=== PATIENT | female | born 1960 | race Caucasian/White ===

== ENCOUNTER 2021-03-03 09:36 | Emergency (ER) | payer OTHER, SELFPAY ==
[2021-03-03 10:03] VITALS: BP 160/89; PULSE 64; RESP 18; TEMP 36.8; O2SAT 100; BMI 25.7
--- NOTE | 2021-03-03 10:08 | ED.ALLEREA ---
HPI - Allergic Reaction General Chief complaint: Allergic Reaction Stated complaint: Allergic reaction to new medication Time Seen by Provider: 03/03/21 10:03 Source: patient Mode of arrival: Family Vehicle Limitations: no limitations History of Present Illness HPI narrative: Patient is a 60-year-old female. This morning took the 1st dose of a new medicine for irritable bowel syndrome. This medicine was dicyclomine. She has never taken it before. Approximately 30 minutes after ingesting the medicine she started to have a dry mouth, tingling skin, lightheadedness. Denies any nausea vomiting. No chest pain. No problems breathing. No swelling of the tongue. No problems swallowing. No rashes. Has not tried anything for the symptoms prior to arrival. Related Data Home Medications Medication Instructions Recorded Confirmed dicyclomine 20 mg tablet 20 mg PO DAILY 03/03/21 03/03/21 Allergies Allergy/AdvReac Type Severity Reaction Status Date / Time ibuprofen Allergy Swelling Verified 03/03/21 09:55 of Lip/Tongue/Throat Review of Systems Constitutional Constitutional: Denies fever(s) Cardiovascular Cardiovascular: Denies chest pain and Denies dyspnea Respiratory Respiratory: Denies cough and Denies dyspnea Gastrointestinal Gastrointestinal: Denies abdominal pain, Denies nausea and Denies vomiting Musculoskeletal Musculoskeletal: Reports system reviewed and no additional complaints, except as documented and Reports as per HPI Integumentary/Breasts Skin/Breast: Reports system reviewed and no additional complaints, except as documented and Reports as per HPI Neurologic Neurologic: Reports system reviewed and no additional complaints, except as documented and Reports as per HPI Hematologic/Lymphatic On Anticoagulants: No Allergic/Immunologic Allergic/Immunologic: Reports system reviewed and no additional complaints, except as documented and Reports as per HPI Patient History Medical History Irritable bowel syndrome Social History Smoking Status: Never smoker Smoking Status: Never smoker alcohol intake frequency: 0-2 drinks per day Substance Use Type: does not use Exam Initial Vital Signs Initial Vital Signs: Vital Signs Temperature 98.3 F 03/03/21 10:03 Pulse Rate 64 03/03/21 10:03 Respiratory Rate 18 03/03/21 10:03 Blood Pressure 160/89 H 03/03/21 10:03 Pulse Oximetry 100 03/03/21 10:03 Const General: cooperative, healthy appearing and comfortable [facility] Head: normal to inspection and normocephalic Mouth: oral mucosae normal Throat: posterior oropharynx normal Resp Effort & Inspection: normal respiratory effort Auscultation: clear to auscultation bilaterally Cardio Rate: regular rate Rhythm: regular rhythm GI Palpation: soft and No tender Skin General: no rashes or lesions noted Neuro General: patient alert and patient awake Extrem General: normal to inspection and capillary refill normal Psych Appearance: grossly normal and well kempt Course Orders Ordered: Discontinued Medications Diphenhydramine HCl (Diphenhydramine 25 Mg Tablet) 25 mg PO NOW ONE Stop: 03/03/21 10:04 Last Admin: 03/03/21 10:14 Dose: 25 mg Documented by: MARK Vital Signs Vital signs: Vital Signs - 8 hr 03/03/21 10:03 Temperature 98.3 F Pulse Rate 64 Respiratory Rate 18 Blood Pressure 160/89 H Pulse Oximetry 100 MDM - Allergic Reaction MDM Narrative Medical decision making narrative: I suspect that the reaction that she had today after the ingestion of dicyclomine was a anticholinergic reaction rather than a allergic reaction. She did feel better after they Benadryl. No respiratory distress. No nausea vomiting. Patient is safe for discharge home. She will stop taking this medication. She was given return precautions and follow-up instructions. She expressed understanding and agreement. Discharge Plan Departure Patient Disposition: Home Clinical Impression: Medication reaction Instructions: DI for Adverse Drug Reaction -- Allergic Activity Restrictions/Additional Instructions: I do recommend that you stop taking the dicyclomine has you obviously have had a bad reaction to it. This medicine has a duration of up to 4 hours with a peak of 60-90 minutes after ingestion. Contact your primary doctor to discuss potential alternatives to this medicine. Return to the emergency department for any new or worsening symptoms Prescriptions: No Action dicyclomine 20 mg tablet 20 mg PO DAILY RF: 0
[2021-03-03] MEDS: diphenhydrAMINE 25 MG TABLET PO (10:14)
[2021-03-03 10:35] VITALS: PULSE 57; O2SAT 96
[2021-03-03 11:21] VITALS: BP 152/82; PULSE 56; RESP 18; O2SAT 96
== END 2021-03-03 11:23 | disposition home or self-care (01) ==
PROVIDERS: Emergency Provider Emergency Medicine
DX: R20.2 Paresthesia of skin (principal); R68.2 Dry mouth, unspecified; T44.3X5A Adverse effect of other parasympatholytics [anticholinergics and antimuscarinics] and spasmolytics, initial encounter
CPT/HCPCS: 99283

== ENCOUNTER 2021-05-25 10:37 | Observation (INO) | payer OTHER, SELFPAY ==
[2021-05-25] VITALS (14 sets, daily range): BP systolic 135–197; BP diastolic 77–94; PULSE 63–78; RESP 14–21; TEMP 36.5–36.9; O2SAT 81–98; BMI 28.5
--- NOTE | 2021-05-25 10:47 | DI.CT.S_ITS ---
PROCEDURE: CT STROKE INDICATIONS: acute stroke symptoms onset 930am TECHNIQUE: Noncontrast 4.5 mm thick angled axial sections acquired from the foramen magnum to the vertex, with coronal reformats. For radiation dose reduction, the following was used: automated exposure control, adjustment of mA and/or kV according to patient size. COMPARISON: None. FINDINGS: Image quality: Excellent. CSF spaces: Basal cisterns are patent. No extra-axial fluid collections. Ventricles are normal in size and shape. Brain: No midline shift. No intracranial masses or hemorrhage. Alfaro-white matter interface is normal. Skull and face: Calvarium and visualized facial bones are intact, without suspicious lesions. Sinuses: Visualized sinuses and mastoids are clear. IMPRESSION: No acute intracranial abnormality identified. No acute intracranial hemorrhage. This study fulfills neurological imaging criteria for inclusion or exclusion of acute stroke therapies based on available published neurological imaging guidelines. Comment: Findings were discussed with Joan Limon at the time of dictation. Dictated by: Kyaw Matute M.D. on 05/25/2021 at 11:12 Approved by: Kyaw Matute M.D. on 05/25/2021 at 11:15
--- NOTE | 2021-05-25 10:49 | ED_ITS ---
HPI - General Adult General Chief complaint: Neuro Symptoms/Deficit Stated complaint: Poss stroke Time Seen by Provider: 05/25/21 10:46 History of Present Illness HPI narrative: 60-year-old woman with no cardiac, stroke or hypertensive history presents with acute onset of right-sided facial numbness minor weakness right arm with decreased sensation and complaints that her tongue does not seem to be working right. She was on her way to work at 9:30 a.m. this morning when symptoms sta rted. She did take an aspirin prior to arrival. Code stroke was called at time of arrival. Pt denies htn, other med but chart indicates HTN, clonidine at HS for sleep, hormones and recent Hematuria persisting after treatment of urinary tract infection and discussion of CT KUB verses renal ultrasound was had. Related Data Home Medications Medication Instructions Recorded Confirmed clonidine HCl 0.1 mg tablet 0.1 mg PO BEDTIME 05/25/21 05/25/21 dicyclomine 20 mg tablet 20 mg PO DAILY 05/25/21 05/25/21 estradiol 1 mg tablet 1 mg PO DAILY 05/25/21 05/25/21 hydroxyzine pamoate 25 mg capsule 25 mg PO BEDTIME 05/25/21 05/25/21 metoprolol succinate 25 mg 25 mg PO DAILY 05/25/21 05/25/21 tablet,extended release 24 hr Allergies Allergy/AdvReac Type Severity Reaction Status Date / Time ibuprofen Allergy Swelling Verified 03/03/21 09:55 of Lip/Tongue/Throat Review of Systems Review of Systems Narrative: She notes recurrent UTI symptoms and is scheduled for a abdominal CT scan as part of that workup Pertinent positive and negative findings as per HPI Remainder of review of systems is otherwise unremarkable for Constitutional: Fevers, chills, weakness ENT: No sore throat, neck pain, ear pain CV: Chest pain, palpitations, Respiratory: Cough, wheeze, dyspnea GI: Nausea, vomiting, diarrhea, Patient History Medical History Irritable bowel syndrome Social History household members: spouse Smoking Status: Never smoker Smoking Status: Never smoker alcohol intake frequency: 0-2 drinks per day Substance Use Type: does not use Exam Narrative Exam Narrative: General: Healthy appearing, in no acute distress. Able to give a complete and coherent history. Well-nourished well-developed HEENT: Moist mucous membranes, normal sclera with reactive pupils, Neck: No JVD, supple Respiratory: Lungs are clear to auscultation, no wheezing no rales no rhonchi. Full and symmetrical air movement Cardiac: Regular rate and rhythm no murmurs no bruits Abdomen: Soft, nontender, good bowel tones, no flank pain Skin: Warm and dry, no rashes Extremities: No trauma, well perfused Psych: Cooperative, appropriate insight and affect Neurologic: NIH Stroke Scale/Score (NIHSS) from [email or web address] on 05/25/2021 3 points NIH Stroke Scale INPUTS: 1A: Level of consciousness ?> 0 = Alert; keenly responsive 1B: Ask month and age ?> 0 = Both questions right 1C: 'Blink eyes' & 'squeeze hands' ?> 0 = Performs both tasks 2: Horizontal extraocular movements ?> 0 = Normal 3: Visual kumar ?> 0 = No visual loss 4: Facial palsy ?> 1 = Minor paralysis (flat nasolabial fold, smile asymmetry) 5A: Left arm motor drift ?> 0 = No drift for 10 seconds 5B: Right arm motor drift ?> 0 = No drift for 10 seconds 6A: Left leg motor drift ?> 0 = No drift for 5 seconds 6B: Right leg motor drift ?> 0 = No drift for 5 seconds 7: Limb Ataxia ?> 0 = No ataxia 8: Sensation ?> 1 = Mild-moderate loss: less sharp/more dull 9: Language/aphasia ?> 0 = Normal; no aphasia 10: Dysarthria ?> 1 = Mild-moderate dysarthria: slurring but can be understood 11: Extinction/inattention ?> 0 = No abnormality Initial Vital Signs Initial Vital Signs: Vital Signs Blood Pressure 185/88 H 05/25/21 10:51 Course Orders Ordered: Acetaminophen (Acetaminophen 325 Mg Tablet) 650 mg PO Q6HR PRN PRN Reason: Fever/Mild Pain (1-3) Last Admin: 05/25/21 18:04 Dose: 650 mg Documented by: MEENU Aspirin (Aspirin Ec 325 Mg Tablet) 325 mg PO DAILY [facility] Atorvastatin Calcium (Atorvastatin 20 Mg Tablet) 10 mg PO BEDTIME CARLOS Last Admin: 05/25/21 21:05 Dose: 10 mg Documented by: ANGEL Clonidine HCl (Clonidine 0.1 Mg Tablet) 0.1 mg PO QPM [facility] Enoxaparin Sodium (Enoxaparin 40 Mg/0.4 Ml Syringe) 40 mg SUBCUT DAILY [facility] Hydroxyzine Pamoate (Hydroxyzine Pamoate 25 Mg Capsule) 25 mg PO BEDTIME [facility] Last Admin: 05/25/21 22:54 Dose: 25 mg Documented by: ANGEL Sodium Chloride (Normal Saline 0.9%) 1,000 mls @ 150 mls/hr IV CONT [facility] Last Infusion: 05/25/21 15:41 Dose: 0 mls/hr Documented by: Admin: 05/25/21 11:45 Dose: 150 mls/hr Documented by: JINNY Lorazepam (Lorazepam 0.5 Mg Tablet) 0.5 mg PO Q6HR PRN PRN Reason: Anxiety Last Admin: 05/25/21 23:53 Dose: 0.5 mg Documented by: ANGEL Metoprolol Succinate (Metoprolol Er 25 Mg Tablet) 25 mg PO DAILY [facility] Naloxone HCl (Naloxone 0.4 Mg/Ml Vial) 0.2 mg IV Q2MIN PRN PRN Reason: Opiate Reversal Ondansetron HCl (Ondansetron 4 Mg Odt) 4 mg PO Q8HR PRN PRN Reason: Nausea And Vomiting Discontinued Medications Labetalol HCl (Labetalol 20 Mg/4 Ml Syringe) 10 mg IV NOW ONE Stop: 05/25/21 14:34 Last Admin: 05/25/21 15:02 Dose: 10 mg Documented by: BALDEMAR Metoprolol Tartrate (Metoprolol Ir 25 Mg Tablet) 25 mg PO NOW ONE Stop: 05/25/21 14:34 Last Admin: 05/25/21 15:02 Dose: 25 mg Documented by: BALDEMAR Vital Signs Vital signs: Vital Signs - 8 hr 05/25/21 10:51 05/25/21 11:36 05/25/21 12:00 Pulse Rate 63 69 Respiratory Rate 15 Blood Pressure 185/88 H Pulse Oximetry 81 L 96 05/25/21 12:23 05/25/21 12:30 05/25/21 13:00 Pulse Rate 71 69 69 Respiratory Rate 14 18 15 Blood Pressure 197/94 H Pulse Oximetry 98 97 97 Medical Decision Making Lab Data Result diagrams: 05/26/21 06:00 05/26/21 06:00 Labs: Lab Results 05/25/21 05/25/21 05/25/21 Range/Units 11:20 11:20 12:19 WBC 4.1 L (4.5-11.0) X10^3/uL RBC 3.58 L (4.0-5.2) X10^6/uL Hgb 12.1 (12.0-16.0) g/dL Hct 34.9 L (36-46) % MCV 97.4 (80-100) fL MCH 33.8 (26-34) PG MCHC 34.6 (30-36) % RDW 12.5 (11.6-14.8) % Plt Count 156 (150-400) X10^3/uL Neut % (Auto) 46.2 L (50-75) % Lymph % (Auto) 40.0 (25-40) % Levy % (Auto) 11.1 (3-14) % Eos % (Auto) 1.9 L (2-4) % Baso % (Auto) 0.8 (0-2) % Neut # (Auto) 1900 (0365-5352) /uL Lymph # (Auto) 1600 (4747-2588) /uL Levy # (Auto) 500 (0-900) /uL Eos # (Auto) 100 (0-450) /uL Baso # (Auto) 0 (0-100) /uL Sodium 134 L (137-145) mmol/L Potassium 3.7 (3.4-5.1) mmol/L Chloride 100 (98-107) mmol/L Carbon Dioxide 27 (22-32) mmol/L BUN 15 (7-17) mg/dL Creatinine 0.86 (0.52-1.04) mg/dL Estimated GFR > 60.0 (>60) mL/min BUN/Creatinine Ratio 17.4 (6-22) Glucose 115 H (70-100) mg/dL Calcium 9.0 (8.4-10.2) mg/dL Total Bilirubin 0.4 (0.2-1.3) mg/dL AST 39 H (14-36) IU/L ALT 33 (<35) IU/L Alkaline Phosphatase 58 (38-126) U/L Total Protein 7.2 (6.3-8.2) g/dL Albumin 4.3 (3.5-5.0) g/dL Globulin 2.9 (1.7-4.1) g/dL Albumin/Globulin Ratio 1.5 (1.0-2.8) SARS-CoV-2 (PCR) Negative (Negative) Point of Care Testing Glucose POC 145 Point of care testing: Point of Care Testing Glucose POC [address] head and CTA head and neck: Radiologist's Impression: FINDINGS:? Image quality:? Excellent.? ? CSF spaces:? Basal cisterns are patent.? No extra-axial fluid collections.? Ventricles are normal in size and shape.? ? Brain:? No midline shift.? No intracranial masses or hemorrhage.? Alfaro-white matter interface is normal.? ? Skull and face:? Calvarium and visualized facial bones are intact, without s uspicious lesions.? ? Sinuses:? Visualized sinuses and mastoids are clear.? ? IMPRESSION:? No acute intracranial abnormality identified.? No acute intracranial hemorrhage. ? This study fulfills neurological imaging criteria for inclusion or exclusion of acute stroke therapies based on available published neurological imaging guidelines.? ? ? Comment: Findings were discussed with Joan Limon at the time of dictation. ? Dictated by: Kyaw Matute M.D. on 05/25/2021 at 11:12 ? ? FINDINGS:? Image quality:? Excellent.? ? BRAIN:? CSF spaces:? Ventricles are normal in size and shape.? Basal cisterns are patent.? No extra-axial fluid collections.? ? Brain:? No midline shift.? No intracranial bleeds or masses.? Alfaro-white matter interface appears intact.? ? Skull and face:? Calvarium and facial bones appear intact, without suspicious lesions.? Orbits appear normal.? ? Sinuses:? Sinuses and mastoids are clear.? ? HEAD CT ANGIOGRAPHY:? Anterior circulation:? Intracranial internal carotid arteries are normal in size and flow.? The flow within the paired anterior cerebral arteries is normal and symmetric.? The flow within the middle cerebral arteries is normal and symmetric.? The anterior communicating artery is seen.? No aneurysms are seen.? ? Posterior circulation:? Visualized portions of the vertebral arteries demonstrate normal caliber, and join to form a normal appearing basilar artery.? Flow within the posterior cerebral arteries is normal and symmetric.? No aneurysms are seen.? ? NECK CT ANGIOGRAPHY:? Carotid system:? The great vessels demonstrate a conventional anatomy as they arise from the aortic arch.? The origins of the common carotid arteries appear patent.? The common carotid arteries demonstrate normal caliber and courses.? The bifurcation regions are both widely patent.? The internal carotid arteries demonstrate normal calibers and courses.? ? Posterior circulation:? The origins of the vertebral arteries both appear widely patent.? The more superior extracranial portions of both vertebral arteries also demonstrate normal courses and calibers.? They join to form a normal appearing basilar artery.? ? Soft tissues:? Visualized neck soft tissues demonstrate no suspicious abnormalities.? ? Bones:? No suspicious bony lesions.? Visualized cervical spine appears normally aligned.? Cervical spine degenerative changes are seen, with focal moderate disc space na rrowing at C4-C5, with milder degenerative changes seen elsewhere. ? ? IMPRESSION:? No hemodynamically significant stenosis can be seen within the intracranial circulation or within the arteries of neck. ? If there is strong clinical suspicion for an acute stroke, please consider a brain MRI for further evaluation, as it is more sensitive (assuming that there is no contraindication to MRI). ? ? Incidental note is made of: Focal C4-C5 degenerative change ? Any quantitative measurements of stenosis were performed using NASCET criteria.? ? ? ECG Data Interpretation: Sinus rhythm at a rate of 72 Normal intervals, normal axis No acute ischemic changes MDM Narrative Medical decision making narrative: 11:08 CT scan is reviewed in real-time no acute bleed. Tele stroke consult is initiated 1114 tell stroke exam is begun. In consultation with tele stroke neurologist decision was made to not give tPA based on minimal symptoms and risk benefit carol lysis. Will talk to her admitting doctor and anticipate hospital admission. All findings are reviewed with patient and her . Care is reviewed with Dr. Salinas, her chart is reviewed and turned that she does have hypertension is on 25 mg of metoprolol succinate with 0.1 mg of clonidine at night for sleeping. She is also on estrogen replacement and recently had hematuria persistent after treatment of a UTI and needs further workup for that. She has remained relatively hypertensive throughout her emergency room stay. Will treat with labetalol and give her oral metoprolol 25 mg tartrate for this afternoon. Dr. Salinas will further evaluate her after her clinic this evening she can be transferred to the floor Additional Information: Acute stroke, NIH score of 3. Patient declined tPA after discussion and exam with tele stroke neurologist based on risk benefit analysis Critical Care Time Critical Care Time Critical Care Time: Yes Total Critical Care Time: 33 Attestation: Critical care time is separate from other billable procedures. There is a high probability of a significant, sudden or life-threatening deterioration that requires my full and direct attention, intervention and personal management. This critical care time includes consultation with family and other consulting doctors, review of records, and interpretation of data from labs, EKGs and imaging as well as managements of acute stroke and emergent consultations Discharge Plan Departure Patient Disposition: Admitted As Inpatient Clinical Impression: Hypertension Stroke Qualifiers: CVA mechanism: thrombosis Precerebral and cerebral artery: unspecified precerebral artery Qualified Code(s): I63.00 - Cerebral infarction due to thrombosis of unspecified precerebral artery Admit Date/Time: 05/25/21 15:04 Admit Provider: Katty Salinas
--- NOTE | 2021-05-25 10:59 | DI.CT.S_ITS ---
PROCEDURE: CT ANGIO HEAD AND NECK INDICATIONS: acute stroke symptoms onset 930am TECHNIQUE: Noncontrast images were performed earlier in the day and not repeated. After the administration of intravenous contrast, 1 mm thick sections acquired from the aortic arch through the [place]. Post-contrast 4.5 mm thick sections then re-acquired from the foramen magnum to the vertex. 3-dimensional hluyjkf-gngwqyqya-ptanjwyber (MIP) and/or volume rendering reformats were acquired of the central intracranial vasculature and neck separately. COMPARISON: [facility], CT, CT STROKE, 05/25/2021, 11:01. FINDINGS: Image quality: Excellent. BRAIN: CSF spaces: Ventricles are normal in size and shape. Basal cisterns are patent. No extra-axial fluid collections. Brain: No midline shift. No intracranial bleeds or masses. Alfaro-white matter interface appears intact. Skull and face: Calvarium and facial bones appear intact, without suspicious lesions. Orbits appear normal. Sinuses: Sinuses and mastoids are clear. HEAD CT ANGIOGRAPHY: Anterior circulation: Intracranial internal carotid arteries are normal in size and flow. The flow within the paired anterior cerebral arteries is normal and symmetric. The flow within the middle cerebral arteries is normal and symmetric. The anterior communicating artery is seen. No aneurysms are seen. Posterior circulation: Visualized portions of the vertebral arteries demonstrate normal caliber, and join to form a normal appearing basilar artery. Flow within the posterior cerebral arteries is normal and symmetric. No aneurysms are seen. NECK CT ANGIOGRAPHY: Carotid system: The great vessels demonstrate a conventional anatomy as they arise from the aortic arch. The origins of the common carotid arteries appear patent. The common carotid arteries demonstrate normal caliber and courses. The bifurcation regions are both widely patent. The internal carotid arteries demonstrate normal calibers and courses. Posterior circulation: The origins of the vertebral arteries both appear widely patent. The more superior extracranial portions of both vertebral arteries also demonstrate normal courses and calibers. They join to form a normal appearing basilar artery. Soft tissues: Visualized neck soft tissues demonstrate no suspicious abnormalities. Bones: No suspicious bony lesions. Visualized cervical spine appears normally aligned. Cervical spine degenerative changes are seen, with focal moderate disc space narrowing at C4-C5, with milder degenerative changes seen elsewhere. IMPRESSION: No hemodynamically significant stenosis can be seen within the intracranial circulation or within the arteries of neck. If there is strong clinical suspicion for an acute stroke, please consider a brain MRI for further evaluation, as it is more sensitive (assuming that there is no contraindication to MRI). Incidental note is made of: Focal C4-C5 degenerative change Any quantitative measurements of stenosis were performed using NASCET criteria. Dictated by: Brad Manjarrez M.D. on 05/25/2021 at 10:25 Approved by: Brad Manjarrez M.D. on 05/25/2021 at 10:28
[2021-05-25 11:33] LABS: Add Manual Diff / Slide Review NO; Basophils Absolute Auto 0 /uL (0-100); Basophils Percent Auto 0.8 % (0-2); Eosinophils Absolute Auto 100 /uL (0-450); Eosinophils Percent Auto 1.9 % (2-4); Hematocrit 34.9 % (36-46); Hemoglobin 12.1 g/dL (12.0-16.0); Lymphocytes Absolute Auto 1600 /uL (1100-4500); Mean Corpuscular HGB Conc 34.6 % (30-36); Mean Corpuscular Hemoglobin 33.8 PG (26-34); Mean Corpuscular Volume 97.4 fL (80-100); Monocytes Absolute Auto 500 /uL (0-900); Monocytes Percent Auto 11.1 % (3-14); Neutrophils Absolute Auto 1900 /uL (1500-7000); Neutrophils Percent Auto 46.2 % (50-75); Platelet Count 156 X10^3/uL (150-400); Red Blood Cell Count 3.58 X10^6/uL (4.0-5.2); Red Cell Distribution Width 12.5 % (11.6-14.8); White Blood Cell Count 4.1 X10^3/uL (4.5-11.0)
--- NOTE | 2021-05-25 11:34 | PC.NURSE ---
Dr. Pinto with [facility] called at 1133. Reports that patient has declined TPA.
[2021-05-25 11:45] LABS: Alanine Aminotransferase 33 IU/L (<35); Albumin 4.3 g/dL (3.5-5.0); Albumin Globulin Ratio 1.5 (1.0-2.8); Alkaline Phosphatase 58 U/L (38-126); Aspartate Aminotransferase 39 IU/L (14-36); BUN Creatinine Ratio 17.4 (6-22); Bilirubin Total 0.4 mg/dL (0.2-1.3); Blood Urea Nitrogen 15 mg/dL (7-17); Carbon Dioxide 27 mmol/L (22-32); Chloride 100 mmol/L (98-107); Estimated Glomerular Filt Rate > 60.0 mL/min (>60); Globulin 2.9 g/dL (1.7-4.1); Glucose 115 mg/dL (70-100); HEMOLYSIS < 15 (0-50); Potassium 3.7 mmol/L (3.4-5.1); Sodium 134 mmol/L (137-145); Total Protein 7.2 g/dL (6.3-8.2)
[2021-05-25] MEDS: SODIUM CHLORIDE 0.9% 1,000 ML 150 ML IV (11:45)
[2021-05-25 13:34] LABS: COVID19 - ADMIT (NP swab/PCR) Negative (Negative)
[2021-05-25] MEDS: LABETALOL 20 MG/4 ML SYRINGE 10 MG IV (15:02)
[2021-05-25] MEDS: METOPROLOL IR 25 MG TABLET PO (15:02)
[2021-05-25] MEDS: ACETAMINOPHEN 325 MG TABLET 650 MG PO (18:04)
--- NOTE | 2021-05-25 18:47 | PC.NURSE ---
admit note: A&Ox4. NIH:0. pt has some blurry vision on Rt eye and head ache on Rt. side of her head. notified provider. VTO for tylenol and low sodium heart healthy diet. no n/v. oriented pt to room. independent. CMS+. call light in reach.
--- NOTE | 2021-05-25 19:10 | DI.ECHO.S_ITS ---
[facility] +---------+ : : [address] : [address] : : : : [id number] : : : : Phone: [phone]+ Echocardiogram Report + + :Name: LEOBARDO CAMERON Study Date: 05/26/2021 Height: 64 in : :[facility] ReadingLocation: Weight: 166 lb : : Gender: Female BSA: 1.8 m2 : :: 1960 Age: 60 yrs BP: 138/84 mmHg: :Reason For Study: CVA : :Ordering Physician: SONNY, : :SHERRIE Performed By: Kaitlynn Dorsey : :Referring: SHERRIE DENNIS : + + Interpretation Summary 1) Normal left ventricular thickness, size, wall motion, and systolic function (EF 60-65%). 2) Normal right ventricular size and function. 3) No significant valvular abnormalities. 4) Injection of contrast documented no interatrial shunt. 5) No prior Echo available for comparison. Procedure: A two-dimensional transthoracic echocardiogram with color flow and Doppler was performed. The study quality was technically adequate. There is no prior echocardiogram noted for this patient. A saline contrast injection was performed to assess for cardiac shunting. The injection was performed through an intravenous line in the left arm. The patient was in sinus rhythm with heart rates between 70-80 bpm during the exam. Left Ventricle: The left ventricle is normal in size and wall thickness. The ejection fraction is estimated to be 60-65%. Diastolic parameters suggest probable normal left ventricular diastolic function and normal filling pressures. Right Ventricle: The right ventricle is normal in size and function. Atria: The left atrial size is normal. Right atrial size is normal. There is no Doppler evidence for an interatrial shunt. Injection of contrast documented no interatrial shunt. Mitral Valve: The mitral valve is normal in structure and function. There is trace mitral regurgitation. Aortic Valve: The aortic valve is trileaflet. The aortic valve opens well. There is no aortic valve stenosis. No aortic regurgitation is present. Tricuspid Valve: The tricuspid valve is normal in structure and function. There is mild tricuspid regurgitation. The right ventricular systolic pressure is estimated to be at least 22 mmHg based on an estimated right atrial pressure of 3 mm Hg. Pulmonic Valve: The pulmonic valve is not well seen, but is grossly normal. There is trace pulmonic regurgitation. Great Vessels: The aortic root is normal size. The dimensions of the ascending aorta are normal. The IVC is of normal diameter and collapses greater than 50% with a sniff. This suggests a low right atrial pressure of 3 mm Hg. Pericardium/ Pleura There is no pericardial effusion. There is no pleural effusion. MMode/2D Measurements & Calculations LVIDd: 3.9 cm LVOT diam: 2.0 cm LVIDs: 2.9 cm Ao root diam: 3.1 cm FS: 26.4 % asc Aorta Diam: 3.0 cm IVSd: 0.92 cm Ao Arch Diam (Prox Trans): 2.7 cm LVPWd: 0.79 cm LV garcia. diameter/BSA (cm/m^2): 2.1 LV sys. diameter/BSA (cm/m^2): 1.6 LA A2 area: 14.2 cm2 RA long axis: 3.8 cm LA A4 area: 14.7 cm2 RA area: 10.3 cm2 LA length (vol): 4.7 cm RA vol: 23.8 ml LA vol: 37.4 ml RA : 13.2 ml/m2 LA vol index: 20.7 ml/m2 IVC diam: 1.0 cm RVD1 (basal): 2.9 cm RVD2 (mid): 2.6 cm TAPSE: 1.7 cm Doppler Measurements & Calculations Ao V2 max: 144.6 cm/sec LVOT Max Logan: 99.4 cm/sec Ao V2 mean: 98.9 cm/sec LV V1 max P.0 mmHg Ao max P.4 mmHg LV V1 VTI: 18.3 cm Ao mean P.3 mmHg LAURA(I,D): 2.2 cm2 Ao V2 VTI: 25.2 cm LAURA(V,D): 2.1 cm2 sev ratio: 0.73 LAURA indexed to BSA (cm^2/m^2): 1.2 MV E max logan: 74.3 cm/sec TR max logan: 220.1 cm/sec MV A max logan: 70.8 cm/sec TR max P.4 mmHg MV E/A: 1.0 PA V2 max: 96.1 cm/sec Med Peak E' Logan: 6.4 cm/sec PA V2 mean: 59.0 cm/sec E/E' med: 11.7 PA mean P.7 mmHg Lat Peak E' Logan: 14.1 cm/sec PA pr(Accel): 36.2 mmHg E/E' lat: 5.3 E/e' average: 8.5 MV dec time: 0.22 sec SV(LVOT): 55.5 ml Reading Physician:01:14 PM
--- NOTE | 2021-05-25 19:11 | P.HP_ITS ---
History of Present Illness History of Present Illness Date Patient Seen: 05/25/21 Time Patient Seen: 19:12 Date of Onset of Symptoms: 05/25/21 Chief complaint: Poss stroke Narrative: This pleasant 60-year-old female who is followed by Jaimee Marie at [facility] presents to emergency department with complaints of possible stroke. Patient is overall very healthy and is treated with metoprolol and clonidine for hypertension as well as estradiol for hormone replacement therapy. She was in her usual state of health today and had a normal morning except was a late start. 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 While she was driving to work she noticed that her right hand and part of her right forearm se emed numb and tingly. The patient had awakened this morning feeling that she had a little bit of a kink on her right side of her neck. She then got to school noticed that she had trouble gripping her water bottle and she looked in the mirror and did this mild test and noticed that her right lateral mouth was drooping. She then took a full aspirin and was transported to the emergency department at [facility]. She had a neuro tele evaluation and recommendations were for thrombolytics because she did arrive well within the time frame and was felt appropriate for this therapeutic intervention. However she declined. Her CT scan of her head and CT angiogram of her neck were unrevealing. Her blood pressure was elevated in the ER in the 180s over 110 and she was given her p.o. metoprolol as well as 1 dose of labetalol. Her symptoms have subsided to this point she notices a slight droop on the right side of her mouth and a slight right frontal headache that is going away with Tylenol and blurry vision in her right eye. She has no further having any weakness in her arms or numbness or tingling in her arm. She is right handed. She never had any right-sided paresthesias. She had no other motor deficits. She felt that her tongue was thick but she did not have any difficulty speaking. She did not have dysphagia or dysarthria. She not have any cognitive difficulties. She is now feeling good in her blood pressure is normotensive. She is interviewed with her at her bedside. She is an excellent historian. Patient was admitted for further monitoring workup. Her past medical history: 1. Hypertension 2. Mild hyperlipidemia for which she is not on medications for 3. Hormone replacement therapy 4. GERD 5. Anxiety, generalized 6. Hematuria. She recently had a UTI and then was treated and has had persistent hematuria so a CT IVP was ordered. 7. Recurrent UTI 8. 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 It was unclear if she is truly allergic to it or if she had a supratherapeutic dose Past Surgical history: 2000 left thyroidectomy 10/2009 patient had a total abdominal hysterectomy with bilateral salpingo- oophorectomy secondary to endometriosis Health related behavior: Patient smokes cigarettes occasionally. 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 She lives in [place]. Her father was in the [place] so she gripped traveling around the country. Her 25-year-old son lives with her and her Family history: Father with history of a DVT, hypertension, colon cancer. He is 78 years old and is alive and well Mother is healthy no diabetes coronary artery disease or cancer Brother has hypertension Sisters healthy No family history of strokes 2 of her 3 sons have a genetic did score order which is a mitochondrial disease called Kareen hereditary optic neuropathy and they are both blind. Review of systems: Patient has had a lot of stress over the last 4 years because 2 of her 3 sons were diagnosed with Kareen hereditary optic neuropathy and gone blind. One son is living home with her. This has been very challenging to watch and see then have difficulties with this. There seen by Neuro-Ophthalmology just at [facility]. The patient is a carrier as well Patient has not been seen by Neuro-Ophthalmology. She has not had eye exam and probably 3 years. Patient denies any chest pain or shortness of breath or lightheadedness or di zziness. Patient denies any palpitations. Patient had 1 previous similar episode to the 1 that occurred today and brought her in she had very slight similar numbness on her left side and just touch of scarring on her hand. Maybe a slight left-sided droop of her mouth. This did not persist it was not as severe. Patient also complains of a zapping in her left foot that has not been persistent. Patient denies any GI symptoms Patient denies any symptoms Patient denies any back pain or radiculopathy Patient has had her COVID vaccine Patient History Medical History Irritable bowel syndrome Family & Social History Social History: household members spouse Prior Living Arrangements House Safety & Behavioral: Feels Safe in Current Yes Environment Been Physically Hurt or No Threatened By a Person Suicidal Ideation Description None Suicide Plan Description No Plan Tobacco & Substance use: Smoking Status Never smoker alcohol intake frequency 0-2 drinks per day Substance Use Type does not use Meds Home Medications and Allergies Home Medications Medication Instructions Recorded Confirmed Type clonidine HCl 0.1 mg tablet 0.1 mg PO BEDTIME 05/25/21 05/25/21 History dicyclomine 20 mg tablet 20 mg PO DAILY 05/25/21 05/25/21 History estradiol 1 mg tablet 1 mg PO DAILY 05/25/21 05/25/21 History hydroxyzine pamoate 25 mg capsule 25 mg PO BEDTIME 05/25/21 05/25/21 History metoprolol succinate 25 mg 25 mg PO DAILY 05/25/21 05/25/21 History tablet,extended release 24 hr Allergies Allergy/AdvReac Type Severity Reaction Status Date / Time ibuprofen Allergy Swelling Verified 03/03/21 09:55 of Lip/Tongue/Throat Exam Vital Signs (past 8 hours): - 05/25/21 11:36 05/25/21 12:00 05/25/21 12:23 Temperature Pulse Rate 63 69 71 Respiratory Rate 15 14 Blood Pressure 197/94 H Pulse Oximetry 81 L 96 98 05/25/21 12:30 05/25/21 13:00 05/25/21 13:30 Temperature Pulse Rate 69 69 71 Respiratory Rate 18 15 16 Blood Pressure Pulse Oximetry 97 97 97 05/25/21 14:00 05/25/21 14:07 05/25/21 14:30 Temperature Pulse Rate 78 77 73 Respiratory Rate 21 19 16 Blood Pressure 181/86 H 139/89 Pulse Oximetry 98 98 98 05/25/21 15:00 05/25/21 15:45 Temperature 97.7 F Pulse Rate 75 70 Respiratory Rate 19 18 Blood Pressure 145/77 H 138/84 Pulse Oximetry 96 98 Objective Labs Result Diagrams: 05/25/21 11:20 05/25/21 11:20 Labs: Laboratory Results - last 24 hr 05/25/21 05/25/21 05/25/21 11:20 11:20 12:19 WBC 4.1 L RBC 3.58 L Hgb 12.1 Hct 34.9 L MCV 97.4 MCH 33.8 MCHC 34.6 RDW 12.5 Plt Count 156 Neut % (Auto) 46.2 L Lymph % (Auto) 40.0 Baca % (Auto) 11.1 Eos % (Auto) 1.9 L Baso % (Auto) 0.8 Neut # (Auto) 1900 Lymph # (Auto) 1600 Baca # (Auto) 500 Eos # (Auto) 100 Baso # (Auto) 0 Sodium 134 L Potassium 3.7 Chloride 100 Carbon Dioxide 27 BUN 15 Creatinine 0.86 Estimated GFR > 60.0 BUN/Creatinine Ratio 17.4 Glucose 115 H Calcium 9.0 Total Bilirubin 0.4 AST 39 H ALT 33 Alkaline Phosphatase 58 Total Protein 7.2 Albumin 4.3 Globulin 2.9 Albumin/Globulin Ratio 1.5 SARS-CoV-2 (PCR) Negative Assessment & Plan Assessment & Plan narrative: 65 minutes was spent with the patient and discussing the case with the ER physician as well as nursing staff as well as patient and her . I reviewed her chart in the clinic as well as her workup in the hospital and met with her and formulated a plan. 60-year-old female admitted for acute CVA causing visual disturbance in the right eye and facial droop with persistent symptoms of right eye blurred vision Plan: Patient will be admitted to the hospital for further monitoring and workup. Will continue with telemetry and neuro checks Will continue on aspirin daily. Patient was not on any aspirin therapy prior to admission Will do echo in a.m.. Will do MRI/MRA of the head and then will do MRI of the neck. Will treat blood pressure with metoprolol and clonidine. Will start on atorvastatin check lipids in the a.m. Will consult PT and OT Will hold estradiol for now. Will need to discuss with neuropathy ophthalmology whether this truly is beneficial for her vision Assessment 2. Hypertension improved since admission Plan will restart her outpatient clonidine 0.1 mg at bedtime and continue metoprolol XR 25 mg daily. Will monitor blood pressure. Assessment 3. DVT prophylaxis Plan: Will start Lovenox. Will use sequential compression device Assessment 4. History of anxiety and insomnia Plan will provide low-dose lorazepam to use as needed Assessment 5. Visual disturbance associated with possible CVA. She will need outpatient evaluation especially in light of her family history. Code status is full code Time Spent With Patient Critical Care time: I spent a total of [] minutes of critical care time on this patient's care today; this time is exclusive of procedural time.
[2021-05-25] MEDS: ATORVASTATIN 20 MG TABLET 10 MG PO (21:05)
[2021-05-25] MEDS: hydrOXYzine pamoate 25 MG CAPSULE PO (22:54)
[2021-05-25] MEDS: LORazepam 0.5 MG TABLET PO (23:53)
[2021-05-26] VITALS (7 sets, daily range): BP systolic 135–144; BP diastolic 92–96; PULSE 70–76; RESP 14–16; TEMP 36.3–37.1; O2SAT 95–97
[2021-05-26 06:45] LABS: Add Manual Diff / Slide Review NO; Basophils Absolute Auto 0 /uL (0-100); Basophils Percent Auto 0.7 % (0-2); Eosinophils Absolute Auto 100 /uL (0-450); Eosinophils Percent Auto 2.4 % (2-4); Hematocrit 36.5 % (36-46); Hemoglobin 12.6 g/dL (12.0-16.0); Lymphocytes Absolute Auto 2600 /uL (1100-4500); Lymphocytes Percent Auto 47.5 % (25-40); Mean Corpuscular HGB Conc 34.4 % (30-36); Mean Corpuscular Hemoglobin 33.6 PG (26-34); Mean Corpuscular Volume 97.7 fL (80-100); Monocytes Absolute Auto 500 /uL (0-900); Monocytes Percent Auto 9.4 % (3-14); Neutrophils Absolute Auto 2200 /uL (1500-7000); Platelet Count 174 X10^3/uL (150-400); Red Blood Cell Count 3.74 X10^6/uL (4.0-5.2); Red Cell Distribution Width 12.9 % (11.6-14.8); White Blood Cell Count 5.5 X10^3/uL (4.5-11.0)
[2021-05-26 06:54] LABS: Cholesterol 227 mg/dL (140-199); HDL Cholesterol 48 mg/dL (40-60); LDL Cholesterol Calculated 128 mg/dL (<100); Triglycerides 257 mg/dL (35-150)
[2021-05-26 06:55] LABS: BUN Creatinine Ratio 15.6 (6-22); Blood Urea Nitrogen 14 mg/dL (7-17); Calcium 9.4 mg/dL (8.4-10.2); Carbon Dioxide 29 mmol/L (22-32); Chloride 105 mmol/L (98-107); Estimated Glomerular Filt Rate > 60.0 mL/min (>60); Glucose 97 mg/dL (70-100); HEMOLYSIS < 15 (0-50); Sodium 141 mmol/L (137-145)
[2021-05-26] MEDS: ENOXAPARIN 40 MG/0.4 ML SYRINGE SUBCUT (08:43)
[2021-05-26] MEDS: ASPIRIN EC 325 MG TABLET PO (08:43)
[2021-05-26] MEDS: METOPROLOL ER 25 MG TABLET PO (08:43)
--- NOTE | 2021-05-26 10:36 | PT.IIE ---
Medical History (Last Reviewed 05/25/21 @ 19:12 by Katty Salinas MD) Irritable bowel syndrome Physical Therapy Inpatient Evaluation/Re-Eval M1 PT/OT-IP Prior Functional Status Start: 05/26/21 09:37 Freq: NEEDED Status: Active Protocol: Document 05/26/21 10:36 AW (Rec: 05/26/21 12:39 AW [id number]) Medical Review Prior Functional Status Medical History Reviewed Yes Communication WNL. No deficits. Mobility and Gait Independent without AD Activities of Daily Living and IADL's Independent with all ADL and IADL needs Prior Functional Level (Other details) Pt states she had milder symptoms such as left sided numbness/tingling and left facial droop ~2 months ago but did not present for treatment . 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 Social History Household Members spouse Living Arrangements House Number of Floors (Floors) Two Floors Number of Stairs To Enter/Railing? 4 TOPHER with no rail. Inside, pt climbs 14 steps to second level with R rail ascending. 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 She lives in [place] with her , Ugo. M2 PT-IP Current Condition Start: 05/26/21 09:37 Freq: NEEDED Status: Active Protocol: Document 05/26/21 10:36 AW (Rec: 05/26/21 12:39 AW [id number]) Physical Therapy Current Condition Current Condition Evaluation Date 05/26/21 Treatment Diagnosis TIA vs CVA, impaired vision Onset Date 05/25/21 M3 PT-IP Subjective Start: 05/26/21 09:37 Freq: NEEDED Status: Active Protocol: Document 05/26/21 10:36 AW (Rec: 05/26/21 12:39 AW [id number]) Subjective Physical Therapy Visit Type Type Initial Evaluation Visit Start Time 10:15 Visit Stop Time 10:36 Total Visit Minutes 21 Physical Therapy Visit Comments Patient Comments Pt is willing to participate with PT Patient Goals Return to work Therapy Pain Assessment Pain When Pain Assessed During Mobility Pain Present Pain Present Denied Pain M4 PT-IP Mobility and Gait Start: 05/26/21 09:37 Freq: NEEDED Status: Active Protocol: Document 05/26/21 10:36 AW (Rec: 05/26/21 12:39 AW [id number]) PT-Bed Mobility Assessment Supine to Sit Supine to Sit Independent PT-Transfer Assessment Sit to and From Stand Sit to and from Stand Independent Equipment Transfer Assistive Device None Orthotic/Prosthetic Devices or Brace: No Transfers Transfer Destination Chair Transfer Technique Stand Step Pivot Transfer Ability Level of Assist Independent Comments Mobility Comments Pt was lying in bed as PT arrived. BP 135/92 HR 70. She was independently mobile and participated in Functional Gait Assessment with score of 28/30. See gait comments for details. Gait Assessment Gait Gait Assistance Required: Independent Distance (Feet) 300 Assistive Devices Assistive Device None Orthotic/Prosthetic Devices or Brace: No Gait Deviations General Gait Pattern Within Normal Limits Comments Gait Comments Pt scored 28/30 on FGA with single points deducted for mild path deviations during horizontal and vertical head turns. Pt reported mild dizziness associated with these tasks but symptoms resolved quickly. Stair Climbing Assessment Evaluation Level of Assist On Stairs Independent Devices Stair Climbing Assistive Devices None Technique/Endurance Stair Climbing Direction Ascend and Descend Stair Climbing Technique Step Over Step Number of Steps Climbed 3 Query Text: Stair Climbing Set # Repetitions (reps) 2 PT-Balance Assessment Sitting Balance and Reactions Static Sitting Balance Ability Normal Dynamic Sitting Balance Ability Normal Standing Balance and Reactions Static Standing Balance Ability Normal Dynamic Standing Balance Ability Normal Functional Assessments Functional Tests Functional Gait Assessment 28/30. See gait comments for details. M5 PT-IP Objective Assessments Start: 05/26/21 09:37 Freq: NEEDED Status: Active Protocol: Document 05/26/21 10:36 AW (Rec: 05/26/21 12:39 AW [id number]) Orientation Orientation/Cognition Level of Alertness Alert Orientation Name,Day of Week,Place, Situation Language Function Ability No Deficits Noted Safety Awareness Understands Safety Issues Memory Description No Deficits Noted Gross Range of Motion Upper Extremity ROM Assessment Within Functional Limits Lower Extremity ROM Assessment Within Functional Limits Strength Upper Extremity Strength Assessment Within Functional Limits Lower Extremity Strength Assessment Within Functional Limits Comments Strength Comments Right hip flexion and ankle DF 1/2 grade lower than left side but all WFL Coordination Assessment Assessment Finger to Nose Test Minimal Impairment Pronation/Supination Test Normal Performance Foot Tapping Test Normal Performance Coordination Comments Very mild right-sided impairment on finger <> nose. Pt was accurate with targets but had slightly less speed on the right side. Sensation Assessment Sensation Gross Sensation WNL Comments Sensation Comments Pt states all sensation disturbance has resolved. Muscle Tone Muscle Tone WNL Yes Comments Muscle Tone Comments Negative ankle clonus bilaterally. Other Assessments Other Other Assessments Vestibular exam was grossly normal but only points deducted during FGA were for vertical and horizontal head turns. Head thrust test demonstrated WNL VOR. No resting or gaze-evoked nystagmus was observed. On occulomotor assessment, smooth pursuits and saccades were WNL but right eye abduction appeared weak with gaze resting slightly toward midline at rest. Convergence/ divergence were WNL. M6 PT-IP Treatment Start: 05/26/21 09:37 Freq: NEEDED Status: Active Protocol: Document 05/26/21 10:36 AW (Rec: 05/26/21 12:39 AW [id number]) Physical Therapy Treatment Education Education Provided Safety Other Treatments Other Treatment Performed Educated pt on signs/symptoms of CVA with which she seemed well familiar. Also educated pt on potential balance implications of visual disturbance. M7 PT-IP Assessment and Plan Start: 05/26/21 09:37 Freq: NEEDED Status: Active Protocol: Document 05/26/21 10:36 AW (Rec: 05/26/21 12:39 AW [id number]) PT Summary Assessment and Plan Potential Status of Condition at Evaluation Stable Summary Assessment Summary Kt is a 60 yo woman seen for PT evaluation per stroke protocol. 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 On assessment, strength was grossly symmetrical but hip flexion and ankle dorsiflexion on the right side were 1/2 grade less than the left. Vestibular screen was normal. Vision remains blurred on the right side and peripheral visual field is mildly impaired. Pt appears to have weakness of right eye abduction with resting gaze tending slightly toward midline. Visual disturbance has not affected balance as pt scored 28/30 on Functional Gait Assessment which is better than age- matched peers. No acute or subacute PT needs were identified but pt would benefit from neurophthalmology consult. Pt has a good understanding of signs/ symptoms of stroke and when to return for treatment if indicated. PT will discharge orders at this time. Frequency of Treatment Frequency Of Treatment Discharge Recommendations To Nursing Amount of Assist Needed Independent Discharge Recommendations PT Discharge Recommendations Home Other Discharge Recommendations Neurophthalmology consult recommended. Transportation Needs at Discharge Private Vehicle
--- NOTE | 2021-05-26 13:00 | OT.IP.EVAL ---
Past Medical History (Last Reviewed 05/25/21 @ 19:12 by Katty Salinas MD) Irritable bowel syndrome Occupational Therapy Inpatient Evaluation/Re-Eval M1 PT/OT-IP Prior Functional Status Start: 05/26/21 09:37 Freq: NEEDED Status: Active Protocol: Document 05/26/21 13:04 [facility] (Rec: 05/26/21 13:12 [facility] [id number]) Medical Review Prior Functional Status Medical History Reviewed Yes Communication WNL. No deficits. Mobility and Gait Independent without AD Activities of Daily Living and IADL's Independent with all ADL and IADL needs Prior Functional Level (Other details) Pt states she had milder symptoms such as left sided numbness/tingling and left facial droop ~2 months ago but did not present for treatment . 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 Social History Household Members spouse Living Arrangements House Number of Floors (Floors) Two Floors Number of Stairs To Enter/Railing? 4 TOPHER with no rail. Inside, pt climbs 14 steps to second level with R rail ascending. 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 She lives in [place] with her , Ugo. M2 OT-IP Current Condition Start: 05/26/21 13:01 Freq: Status: Active Protocol: Document 05/26/21 13:04 [facility] (Rec: 05/26/21 13:12 [facility] [id number]) Occupational Therapy Current Condition Current Condition Evaluation Date 05/26/21 Treatment Diagnosis TIA Diagnosis Onset Date 05/25/21 M3 OT- IP Subjective and Pain Start: 05/26/21 13:01 Freq: Status: Active Protocol: Document 05/26/21 13:04 [facility] (Rec: 05/26/21 13:12 [facility] [id number]) OT- Subjective Occupational Therapy Visit Type Type Initial Evaluation Visit Start Time 12:40 Visit Stop Time 13:00 Total Visit Minutes 20 Occupational Therapy Visit Comments Patient Comments Pt agreed to do Ot eval. Pt's in the room. Patient/Caregiver Goals To go home. OT Pain Assessment Pain When Pain Assessed At Rest Pain Present Pain Present Denied Pain M4 OT- IP ADL's Start: 05/26/21 13:01 Freq: Status: Active Protocol: Document 05/26/21 13:04 [facility] (Rec: 05/26/21 13:12 [facility] [id number]) OT RWV-Rswv-Rovmwvk General Evaluation Self-Feeding Ability Independent OT ADL-Grooming General Evaluation Grooming Ability Independent OT ADL-Oral Care General Eval Oral Care Ability Independent OT ADL-Dressing General Eval Upper Body Dressing Ability Independent Lower Body Dressing Ability Independent OT ADL-Toileting General Evaluation Toileting Ability Independent OT ADL-Bathing Comments OT Bathing Comments Pt states to shower at home. M5 OT- IP IADL's Start: 05/26/21 13:01 Freq: Status: Active Protocol: Document 05/26/21 13:04 [facility] (Rec: 05/26/21 13:12 [facility] [id number]) OT-Instrumental Activities of Daily Living Deficits IADL Deficits Identified No Deficits Home Safety Awareness Awareness of Need for Assistance at Home Good Awareness Ability to Problem Solve Emergency Able to Problem Solve Situations Medication Management Medication Management No Deficits Identified Money Management Money Management No Deficits Identified Meal Preparation Meal Preparation No Deficits Identified Housing Assistant Property Manager Housing Assistant Property Manager No Deficits Identified M6 OT- IP Functional Cognition Start: 05/26/21 13:01 Freq: Status: Active Protocol: Document 05/26/21 13:04 [facility] (Rec: 05/26/21 13:12 [facility] [id number]) Cognitive Factors Limiting Selfcare Function Cognitive Ability Level of Alertness Alert Patient Orientation Name,Age,Birthday,Month,Date, Year,Day of Week,Place, Situation Attention Span Ability Capable of Focused Attention, Capable of Sustained Attention Ability to Follow Commands Able to Follow Multi-Step Commands Memory Description No Deficits Noted Safety Awareness No Deficits Noted Problem Solving Ability No deficits Noted Executive Function Ability No Deficits Noted Cognitive Comments Cognitive Assessment Comments Pt scored 48 seconds which implies completely intact for all cognitive needs and no deficits. OT- Vision and Hearing OT- Hearing Assessment OT- Hearing Assessment WFL OT- Vision Assessment Visual Acuity Glasses For Reading Occular Pursuits WFL Visual Convergence WFL Visual Milner WFL Diplopia Absent Vision Assessment Comments Pt complaining of blurred vision with right eye only. M7 OT- IP Mobility and Balance Start: 05/26/21 13:01 Freq: Status: Active Protocol: Document 05/26/21 13:04 [facility] (Rec: 05/26/21 13:12 [facility] [id number]) OT- Bed Mobility Assessment Rolling Level of Assistance Independent Supine to Sit Supine to Sit Assist Independent Sit to Supine Sit to Supine Assist Independent Scooting Scooting to Edge of Bed Independent Scooting Up and Down in Bed Independent OT-Transfer Assessment Sit to and From Stand Sit to and from Stand Independent Transfers Transfer Ability Independent Devices Transfer Assistive Devices None Comments Mobility Comments Pt completely independent with all mobility needs in her room. OT- Balance Assessment Sitting Balance and Reactions Static Sitting Balance Ability Normal Dynamic Sitting Balance Ability Normal Standing Balance and Reactions Static Standing Balance Ability Normal Dynamic Standing Balance Ability Good Comments Other Balance Tests/Deviations/Treatment Pt able to kate/doff her pants : while standing. M8 OT- IP Objective Assessments Start: 05/26/21 13:01 Freq: Status: Active Protocol: Document 05/26/21 13:04 [facility] (Rec: 05/26/21 13:12 [facility] [id number]) OT Gross Range of Motion Upper Extremity Range of Motion Assessment Within Functional Limits OT Strength Upper Extremity Strength Assessment Within Functional Limits OT- Coordination Assessment Comments Coordination Comments Slightly off left finger greater than right for finger to nose. 9 hole peg test right hand 75% and left hand close to 75%, pt is right handed. OT-Muscle Tone Assessment Muscle Tone WNL Yes M9 OT- IP Assessment and Plan Start: 05/26/21 13:01 Freq: Status: Active Protocol: Document 05/26/21 13:04 [facility] (Rec: 05/26/21 13:12 [facility] [id number]) OT Summary Assessment and Plan Potential Rehabilitation Potential Excellent Analytic Complexity at Evaluation Low Summary Assessment Summary Pt here due to right UE tingling and right blurred vision. Per MRI negative for any evidence of acute CVA. Pt does states that she has not gotten her eyes check in awhile and strongly recommended that pt so see an electronic health records specialist. At this time discharge pt for Ot services. Discharge Recommendations OT Discharge Recommendations Home with Assistance Transportation Needs at Discharge Private Vehicle
--- NOTE | 2021-05-26 14:56 | CM.DANOTE ---
DCP/Assessment: Reviewed chart. Patient is a 60yr old female admitted to [facility] with stroke like symptoms. PCP is Jaimee Marie. Primary payor is 1)[facility]. Met with patient and spouse/Ugo at bedside explained CM/SW role. Patient reports that she is completely I in ADL's. 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 Patient denies any current deficits related to TIA vs. stroke. Anticipate that patient will d/c from [facility] this evening after results of MRI and Echo come back. P: Home when stable. [facility] Discharge Planning/Care Management CM Discharge Assessment Start: 05/26/21 14:50 Freq: Status: Active Protocol: Document 05/26/21 14:50 [facility] (Rec: 05/26/21 14:55 [facility] [id number]) Discharge Planning Assessment Assigned Saute Chef EMMA Vargas Contact Information Ugo Cloud (spouse) # Advance Directives? No History Provided By Patient,Significant Other, Medical Record Prior Living Arrangements House Household Members spouse Type of transporation used prior to Drives own vehicle admit Independent with ADL's Yes Is patient alert and oriented? Yes Caregiver for Another No Barriers to Discharge No Discharge Plan Home Transportation Arrangement Family to provide transport. Referrals Initiated None needed Whiteboard Updated in Patient Room with Yes name and ext. # of Saute Chef Review Status In Process Next Review Type Continued Stay Review
--- NOTE | 2021-05-26 18:16 | P.DS_ITS ---
History of Present Illness History of Present Illness Chief complaint: Poss stroke Narrative: This pleasant 60-year-old female who is followed by Jaimee Marie at [facility] presents to emergency department with complaints of possible stroke. Patient is overall very healthy and is treated with metoprolol and clonidine for hypertension as well as estradiol for hormone replacement therapy. She was in her usual state of health today and had a normal morning except was a late start. 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 While she was driving to work she noticed that her right hand and part of her right forearm seemed numb and tingly. The patient had awakened this morning feeling that she had a little bit of a kink on her right side of her neck. She then got to school noticed that she had trouble gripping her water bottle and she looked in the mirror and did this mild test and noticed that her right lateral mouth was drooping. She then took a full aspirin and was transported to the emergency department at [facility]. She had a neuro tele evaluation and re commendations were for thrombolytics because she did arrive well within the time frame and was felt appropriate for this therapeutic intervention. However she declined. Her CT scan of her head and CT angiogram of her neck were unrevealing. Her blood pressure was elevated in the ER in the 180s over 110 and she was given her p.o. metoprolol as well as 1 dose of labetalol. Her symptoms have subsided to this point she notices a slight droop on the right side of her mouth and a slight right frontal headache that is going away with Tylenol and blurry vision in her right eye. She has no further having any weakness in her arms or numbness or tingling in her arm. She is right handed. She never had any right-sided paresthesias. She had no other motor deficits. She felt that her tongue was thick but she did not have any difficulty speaking. She did not have dysphagia or dysarthria. She not have any cognitive difficulties. She is now feeling good in her blood pressure is normotensive. She is interviewed with her at her bedside. She is an excellent historian. Patient was admitted for further monitoring workup. Her past medical history: 1. Hypertension 2. Mild hyperlipidemia for which she is not on medications for 3. Hormone replacement therapy 4. GERD 5. Anxiety, generalized 6. Hematuria. She recently had a UTI and then was treated and has had persistent hematuria so a CT IVP was ordered. 7. Recurrent UTI 8. 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 It was unclear if she is truly allergic to it or if she had a supratherapeutic dose Past Surgical history: 2000 left thyroidectomy 10/2009 patient had a total abdominal hysterectomy with bilateral salpingo- oophorectomy secondary to endometriosis Health related behavior: Patient smokes cigarettes occasionally. 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 She lives in [place]. Her father was in the [place] so she gripped traveling around the country. Her 25-year-old son lives with her and her Family history: Father with history of a DVT, hypertension, colon cancer. He is 78 years old and is alive and well Mother is healthy no diabetes coronary artery disease or cancer Brother has hypertension Sisters healthy No family history of strokes 2 of her 3 sons have a genetic did score order which is a mitochondrial disease called Kareen hereditary optic neuropathy and they are both blind. Review of systems: Patient has had a lot of stress over the last 4 years because 2 of her 3 sons were diagnosed with Kareen hereditary optic neuropathy and gone blind. One son is living home with her. This has been very challenging to watch and see then have difficulties with this. There seen by Neuro-Ophthalmology just at [facility]. The patient is a carrier as well Patient has not been seen by Neuro-Ophthalmology. She has not had eye exam and probably 3 years. Patient denies any chest pain or shortness of breath or lightheadedness or dizziness. Patient denies any palpitations. Patient had 1 previous similar episode to the 1 that occurred today and brought her in she had very slight similar numbness on her left side and just touch of scarring on her hand. Maybe a slight left-sided droop of her mouth. This did not persist it was not as severe. Patient also complains of a zapping in her le ft foot that has not been persistent. Patient denies any GI symptoms Patient denies any symptoms Patient denies any back pain or radiculopathy Patient has had her COVID vaccine Discharge Providers Provider Date of admission: 05/25/21 15:04 Discharge Date: 05/26/21 Primary care physician: ANA Kent Consults: 05/25/21 19:06 Consult to Occupational Therapy Evaluate & Treat Comment: Physician Instructions: Evaluate and treat Consult to Physical Therapy Evaluate & Treat Comment: Physician Instructions: Evaluate and Treat Discharge provider: Katty Salinas MD Summary Hospital Course Discharge Diagnosis: CVA, symptoms improved and almost completely resolved. CT angio of neck and he ad are normal. MRI is normal. Echo is normal. Telemetry showed no arrhythmia. Hypertension, deteriorated. Hyperlipidemia Anxiety Hospital Course: Patient had symptoms of paresthesias and decreased motor strength of her right hand with associated right facial droop that started on day of admission. She was consulted by knee [facility] neurologist and they recommended thrombolytics but patient declined. Patient had taken aspirin prior to arrival. She was admitted to the hospital workup was negative. She was treated with aspirin therapy. She is placed on atorvastatin. Her blood pressure was monitored. She continued on telemetry. She was evaluated by PT and OT and they did not find any defects or any need for physical therapy or occupational therapy. Patient's only persisting symptom was blurred vision in her right eye. Patient was discharged home in stable and improved condition Status at Discharge Cognitive/behavioral status at discharge: oriented Functional status at discharge: independent ambulation Overall status at discharge: patient is progressing back to baseline Exam Vital Signs (past 8 hours): - 05/26/21 12:30 05/26/21 13:30 05/26/21 16:16 Temperature 98.7 F 97.3 F L Pulse Rate 70 76 75 Respiratory Rate 16 16 Blood Pressure 139/96 H 135/92 H 144/96 H Pulse Oximetry 95 96 Oxygen Delivery Method Room Air Oxygen Flow Rate 0 Narrative Exam Narrative: Afebrile, vital signs stable except for blood pressure 130s to 140s over 90s. Heart rate normal patient is afebrile, respiratory rate normal, O2 sat 95-96% HEENT: No obvious facial droop. Patient with questionable right medial esotropia. Smile appears symmetric. May be partial droop on right. No lateral deviation of tongue movement. Neck: Supple without adenopathy, jugular venous distention or bruits Chest: Clear to auscultation without wheezes rhonchi or crackles Cor: Regular rate and rhythm with distant S1-S2 Abdomen: Positive bowel sounds, soft, nontender, nondistended Extremities no edema, pulses intact Neurologic exam is nonfocal. Cranial nerves 2-12 grossly intact other than mentioned above. Objective Labs Result Diagrams: 05/26/21 06:00 05/26/21 06:00 Labs: Laboratory Results - last 24 hr 05/26/21 05/26/21 05/26/21 06:00 06:00 06:00 WBC 5.5 RBC 3.74 L Hgb 12.6 Hct 36.5 MCV 97.7 MCH 33.6 MCHC 34.4 RDW 12.9 Plt Count 174 Neut % (Auto) 40.0 L Lymph % (Auto) 47.5 H [place] % (Auto) 9.4 Eos % (Auto) 2.4 Baso % (Auto) 0.7 Neut # (Auto) 2200 Lymph # (Auto) 2600 [place] # (Auto) 500 Eos # (Auto) 100 Baso # (Auto) 0 Sodium 141 Potassium 4.0 Chloride 105 Carbon Dioxide 29 BUN 14 Creatinine 0.90 Estimated GFR > 60.0 BUN/Creatinine Ratio 15.6 Glucose 97 Calcium 9.4 Triglycerides 257 H Cholesterol 227 H LDL Cholesterol, Calc 128 H HDL Cholesterol 48 PFSH Medical History Irritable bowel syndrome Social History household members: spouse Smoking Status: Never smoker Discharge Assessment & Plan Assessment and Plan Assessment: CVA, symptoms improved and almost completely resolved. CT angio of neck and head are normal. MRI is normal. Echo is normal. Telemetry showed no arrhythmia. Hypertension, deteriorated. Hyperlipidemia Anxiety Plan of Treatment: Discharged home in stable condition Patient started on atorvastatin 40 mg daily. Patient placed on a baby aspirin daily. Will increase metoprolol to 50 mg daily. Otherwise she will continue her same outpatient medications which include 0.1 mg of clonidine at bedtime. She does not need PT are OT because they did not find deficit. She will follow-up with her PCP, Jaimee Marie next week. She will be referred to neuro installer helper at [facility], Dr. lopez, she will also need to see a neurologist. We will have her evaluated locally by installer helper for their opinion. She will need a 30 day night monitor to rule out paroxysmal atrial fibrillation. This will need to be set up as an outpatient. She did not have any arrhythmia in the hospital. Her echo was normal. She will monitor blood pressure. She will follow a low-salt diet. She will be out of work until she follows up with her PCP. If for Neurology, Ophthalmology and Neuro-Ophthalmology workup is negative I would consider MRI of the neck to look for cervical radiculopathy. Patient has a history outpatient of having hematuria and she is scheduled for CT IVP 45 minutes is spent with the patient in discharge. Discharge Plan Discharge Plan Patient Disposition: Home Discharge orders & Medications Prescriptions: New aspirin 325 mg Tablet,Delayed Release (Dr/Ec) 81 mg PO DAILY Qty: 90 0RF atorvastatin [Lipitor] 20 mg Tablet 40 mg PO BEDTIME Qty: 60 0RF metoprolol succinate 25 mg Tablet Extended Release 24 Hr 50 mg PO DAILY Qty: 60 0RF Continued clonidine HCl 0.1 mg tablet 0.1 mg PO BEDTIME 0RF Label Comments: TAKE 1 TABLET BY MOUTH EVERY NIGHT FOR SLEEP dicyclomine 20 mg tablet 20 mg PO DAILY 0RF Label Comments: TAKE 1 TABLET BY MOUTH FOUR TIMES DAILY NEEDED FOR IRRITABLE BOWEL Rx Instructions: pt no longer takes this m ed hydroxyzine pamoate 25 mg capsule 25 mg PO BEDTIME 0RF Changed metoprolol succinate 25 mg tablet extended release 24 hr 50 mg PO DAILY Qty: 0 0RF Discontinued estradiol 1 mg tablet 1 mg PO DAILY 0RF Follow up/Referrals: Jaimee Marie ARNP [Primary Care Provider] - Diet/Activity/Treatments Diet: Low-sodium Discharge Data Primary Care Provider: Jaimee Marie
[2021-05-26] MEDS: ATORVASTATIN 20 MG TABLET 40 MG PO (18:40)
--- NOTE | 2021-05-26 19:10 | DI.MRI.S_ITS ---
PROCEDURE: MR HEAD/BRAIN WO CON INDICATIONS: CVA TECHNIQUE: Noncontrast axial T1 spin echo, axial T2 fast spin echo, sagittal and axial FLAIR, coronal T2 fast spin echo, axial gradient echo, axial diffusion and ADC through the brain. COMPARISON: [facility], CT, CT STROKE, 05/25/2021, 11:01. [facility], CT, CT ANGIO HEAD AND NECK, 05/25/2021, 11:01. FINDINGS: Image quality: Excellent. CSF Spaces: Basal cisterns are patent. No extra-axial fluid collections. Ventricles are normal in size and shape. Brain: No intracranial masses or hemorrhage. Alfaro/white matter interface is normal. Rare scattered small areas of T2 hyperintensity and minimal periventricular increased signal are consistent with age-appropriate small-vessel ischemic change. Brainstem appears normal. Diffusion-weighted images demonstrate no acute ischemic insult. No chronic ischemic insults. Normal intravascular flow voids are present. Skull and face: Calvarium has normal marrow signal. Orbits appear normal. Sinuses: Sinuses and mastoids are clear. IMPRESSION: Negative brain MRI for patient age. No evidence of acute stroke, hemorrhage, or mass. Dictated by: Migel Treviño M.D. on 05/26/2021 at 8:22 Approved by: Migel Treviño M.D. on 05/26/2021 at 8:26
== END 2021-05-26 19:07 | disposition home or self-care (01) ==
LOC: ED 11:57 → AC 05-26 06:53
PROVIDERS: Admitting Provider Family Medicine; Emergency Provider Emergency Medicine; PCP Internal Medicine; Referring Provider Emergency Medicine; Visit Provider Family Medicine
DX: I63.9 Cerebral infarction, unspecified (principal); R20.0 Anesthesia of skin; R53.1 Weakness; R29.703 NIHSS score 3; I10 Essential (primary) hypertension; E78.5 Hyperlipidemia, unspecified; K21.9 Gastro-esophageal reflux disease without esophagitis; F41.9 Anxiety disorder, unspecified; N39.0 Urinary tract infection, site not specified; N02.9 Recurrent and persistent hematuria with unspecified morphologic changes; Z20.822 Contact with and (suspected) exposure to COVID-19; Z79.890 Hormone replacement therapy; F17.210 Nicotine dependence, cigarettes, uncomplicated
CPT/HCPCS: 36415; 70450; 70496; 70498; 70551; 80048; 80053; 80061; 82962; 85025; 87635; 93005; 93306; 94760; 96361; 96372; 96374; 97161; 97165; 99285; 99291; C9803; G0378; Q3014; J1650

== ENCOUNTER 2021-05-30 20:18 | Emergency (ER) | payer OTHER, SELFPAY ==
[2021-05-25 15:45] VITALS: BMI 28.5
[2021-05-30 20:20] VITALS: BP 135/78; PULSE 81; RESP 18; TEMP 36.7; O2SAT 98; BMI 26.6
[2021-05-30 20:36] VITALS: PULSE 77; RESP 24; O2SAT 98
--- NOTE | 2021-05-30 20:57 | ED_ITS ---
HPI - General Adult General Chief complaint: Dizziness Stated complaint: tia stroke on tuesday/occurring again Time Seen by Provider: 05/30/21 20:20 Source: patient and family Mode of arrival: Wheelchair History of Present Illness HPI narrative: Patient is a 60-year-old female. Earlier this week she was seen here in the emergency department for what was initially described as a code stroke. She was admitted to the hospital subsequently for a TIA. Had echocardiogram an MRI of her head. There was no ectopy on the monitor while she was admitted. Her metoprolol was increased. She was placed on Lipitor and baby aspirin. Was discharged home. She states that the symptoms that she had all but resolved except for some vision issues. She did see a ore trimmer within the past couple days and was told everything looked okay with regard to her vision. She has been taking her medications as directed. She has a follow-up with her primary doctor beginning in next week. Yesterday she had a distinct event that was a fairly sudden onset and gradual improvement over the course of an hour of feeling like she was going to pass out. She did get some tunnel vision. She has felt like the skin on the left side of her face was tingling. She had her take her blood pressure and it was elevated. The symptoms from that event completely resolved. She had another event today where the same symptoms happened again. He did not pass out. Did not have chest pain. No shortness of breath. No palpitations. She reports no numbness and tingling in her upper and lower extremities but again felt like the ?skin was tingling ?on the left side of her face. There was no speech issues at the time. There has been no change in her vision. Related Data Home Medications Medication Instructions Recorded Confirmed clonidine HCl 0.1 mg tablet 0.1 mg PO BEDTIME 05/25/21 05/25/21 dicyclomine 20 mg tablet 20 mg PO DAILY 05/25/21 05/25/21 hydroxyzine pamoate 25 mg capsule 25 mg PO BEDTIME 05/25/21 05/25/21 Previous Rx's Medication Instructions Recorded aspirin 325 mg tablet,delayed 81 mg PO DAILY #90 tab 05/26/21 release atorvastatin 20 mg tablet (Lipitor) 40 mg PO BEDTIME #60 tab 05/26/21 metoprolol succinate 25 mg 50 mg PO DAILY #0 tab 05/26/21 tablet,extended release 24 hr metoprolol succinate 25 mg 50 mg PO DAILY #60 tab 05/26/21 tablet,extended release 24 hr Allergies Allergy/AdvReac Type Severity Reaction Status Date / Time ibuprofen Allergy Swelling Verified 03/03/21 09:55 of Lip/Tongue/Throat Review of Systems Constitutional Constitutional: Reports system reviewed and no additional complaints, except as documented Cardiovascular Cardiovascular: Reports system reviewed and no additional complaints, except as documented Respiratory Respiratory: Reports system reviewed and no additional complaints, except as documented Gastrointestinal Gastrointestinal: Reports system reviewed and no additional complaints, except as documented Musculoskeletal Musculoskeletal: Reports system reviewed and no additional complaints, except as documented Integumentary/Breasts Skin/Breast: Reports system reviewed and no additional complaints, except as documented Neurologic Neurologic: Reports system reviewed and no additional complaints, except as documented Psychiatric Psychiatric: Reports system reviewed and no additional complaints, except as documented Hematologic/Lymphatic On Anticoagulants: No Patient History Medical History Hypertension Irritable bowel syndrome TIA (transient ischemic attack) Social History household members: spouse Smoking Status: Former smoker Smoking Status: Former smoker alcohol intake frequency: 0-2 drinks per day Substance Use Type: does not use Exam Initial Vital Signs Initial Vital Signs: Vital Signs Temperature 98.0 F 05/30/21 20:20 Pulse Rate 81 05/30/21 20:20 Respiratory Rate 18 05/30/21 20:20 Blood Pressure 135/78 05/30/21 20:20 Pulse Oximetry 98 05/30/21 20:20 Const General: cooperative, comfortable and well developed [facility] Head: normal to inspection and normocephalic Eyes General: appearance normal, both eyes and all related structures Pupils: PERRL EOM: EOM intact bilaterally Resp Effort & Inspection: normal respiratory effort Auscultation: clear to auscultation bilaterally Cardio Rate: regular rate Rhythm: regular rhythm GI Inspection: normal to inspection Palpation: soft, No guarding and No tender Back/Spine/Pelvis Back: normal to inspection Skin General: no rashes or lesions noted Neuro General: patient alert, patient awake, patient oriented x3 and moves all extremities Cranial Nerves: CN's II-XI intact bilaterally Cognition: normal cognition Speech: speech normal Motor: muscle tone normal throughout Sensory Exam: no sensory deficits noted Coordination: [id number] test normal and [id number] test normal Extrem General: normal to inspection and capillary refill normal Psych Appearance: grossly normal and well kempt Scores [facility] [place] coma scale eye opening: Spontaneous Andrew coma scale verbal response: Orientated Andrew coma scale motor response: Obey commands Andrew coma scale total score: 15 NIH Stroke Scale Level of Conciousness: Alert, keenly responsive Ask month/age: Answers both questions correctly. Open/close eyes, close hand: Performs both tasks correctly Best gaze horizontal: Normal Visual kumar: No visual loss Facial palsy: Normal symetrical movement Left arm drift: No drift for full 10 sec Right arm drift: No drift for full 10 sec Left leg drift: No drift for full 5 sec Right leg drift: No drift for full 5 sec Limb ataxia: Absent Sensory on face/arms/legs: Normal, no sensory loss Best language: No aphasia, normal Dysarthria: Normal Extinction or inattention: No abnormality Total NIH Stroke scale score: 0 Course Orders Ordered: ED Orders 05/30/21 20:59 CT head/brain wo con Stat Vital Signs Vital signs: Vital Signs - 8 hr 05/30/21 20:20 05/30/21 20:36 05/30/21 21:00 Temperature 98.0 F Pulse Rate 81 77 75 Respiratory Rate 18 24 22 Blood Pressure 135/78 Pulse Oximetry 98 98 96 05/30/21 21:11 05/30/21 21:30 05/30/21 21:56 Temperature Pulse Rate 71 65 69 Respiratory Rate 17 18 21 Blood Pressure 112/71 100/65 104/67 Pulse Oximetry 96 96 95 Medical Decision Making Imaging Data CT scan - head: Radiologist's Impression: [place] [address] CT Scan Report Signed Patient: Kt Cloud MR#: [id number] : 1960 Acct:[id number] Age/Sex: 60 / F Date of Service: 05/30/21 Loc: ED Accession Number: [id number] ?? Procedure: CT head/brain wo con Ordering Provider: Juan Daniel Ding D.O. PROCEDURE:? CT HEAD/BRAIN WO CON ? INDICATIONS:? hx of TIA with return of symptoms ? TECHNIQUE:? Noncontrast 4.5 mm thick angled axial sections acquired from the foramen magnum to the vertex, with coronal and sagittal reformats.? For radiation dose reduction, the following was used:? automated exposure control, adjustment of mA and/or kV according to patient size.? ? COMPARISON:? [facility], MR, MR HEAD/BRAIN WO CON, 05/26/2021, 7:41.? [facility], CT, CT ANGIO HEAD AND NECK, 05/25/2021, 11:01.? [facility], CT, CT STROKE, 05/25/2021, 11:01. ? FINDINGS:? Image quality:? Excellent.? ? CSF spaces:? Basal cisterns are patent.? No extra-axial fluid collections.? Ventricles are normal in size and shape.? ? Brain:? No midline shift.? No intracranial masses or hemorrhage.? Alfaro-white matter interface is normal.? ? Skull and face:? Calvarium and visualized facial bones are intact, without suspicious lesions.? ? Sinuses:? Visualized sinuses and mastoids are clear.? ? IMPRESSION:? No acute disease, no source of new symptomatology is found. ? ? Dictated by: Higinio Mai M.D. on 05/30/2021 at 21:19 ? ? Approved by: Higinio Mai M.D. on 05/30/2021 at 21:24?? [facility] Narrative Medical decision making narrative: Patient not hypertensive here in the ER. Has a normal neurologic exam. Head CT is unremarkable. Sinus rhythm on the monitor. I have low suspicion for CVA given her presentation. Considered TIA however on the 100% convinced of this either. She does state that she is having some anxiety based on the symptoms earlier this week. Her vision symptoms in tingling the side of her face seem more to be like prodromal symptoms associated with presyncope rather than neurologic symptoms associated TIA or CVA. Had a long discussion with her and her . She will take her blood pressure at home and recorded. Continue to take her medications. She has an appointment with her primary doctor the beginning of next week. She was given return precautions and follow-up instructions. She expressed understanding and agreement. Discharge Plan Departure Patient Disposition: Home Clinical Impression: Paresthesias, Dizziness Instructions: DI for Numbness/Tingling, DI for Dizziness-Nonvertigo Activity Restrictions/Additional Instructions: Continue to take all of your medications at home as directed. Do recommend that you take your blood pressure at home like we discussed. Keep your scheduled appointment at the beginning of next week. Return to the emergency department for any new or worsening symptoms. Prescriptions: No Action clonidine HCl 0.1 mg tablet 0.1 mg PO BEDTIME 0RF Label Comments: TAKE 1 TABLET BY MOUTH EVERY NIGHT FOR SLEEP dicyclomine 20 mg tablet 20 mg PO DAILY 0RF Label Comments: TAKE 1 TABLET BY MOUTH FOUR TIMES DAILY NEEDED FOR IRRITABLE BOWEL Rx Instructions: pt no longer takes this m ed hydroxyzine pamoate 25 mg capsule 25 mg PO BEDTIME 0RF aspirin 325 mg Tablet,Delayed Release (Dr/Ec) 81 mg PO DAILY Qty: 90 0RF atorvastatin [Lipitor] 20 mg Tablet 40 mg PO BEDTIME Qty: 60 0RF metoprolol succinate 25 mg Tablet Extended Release 24 Hr 50 mg PO DAILY Qty: 60 0RF metoprolol succinate 25 mg tablet extended release 24 hr 50 mg PO DAILY Qty: 0 0RF Referrals: Jaimee Marie ARNP [Primary Care Provider] -
--- NOTE | 2021-05-30 20:59 | DI.CT.S_ITS ---
PROCEDURE: CT HEAD/BRAIN WO CON INDICATIONS: hx of TIA with return of symptoms TECHNIQUE: Noncontrast 4.5 mm thick angled axial sections acquired from the foramen magnum to the vertex, with coronal and sagittal reformats. For radiation dose reduction, the following was used: automated exposure control, adjustment of mA and/or kV according to patient size. COMPARISON: [facility], MR, MR HEAD/BRAIN WO CON, 05/26/2021, 7:41. [facility], CT, CT ANGIO HEAD AND NECK, 05/25/2021, 11:01. [facility], CT, CT STROKE, 05/25/2021, 11:01. FINDINGS: Image quality: Excellent. CSF spaces: Basal cisterns are patent. No extra-axial fluid collections. Ventricles are normal in size and shape. Brain: No midline shift. No intracranial masses or hemorrhage. Alfaro-white matter interface is normal. Skull and face: Calvarium and visualized facial bones are intact, without suspicious lesions. Sinuses: Visualized sinuses and mastoids are clear. IMPRESSION: No acute disease, no source of new symptomatology is found. Dictated by: Higinio Mai M.D. on 05/30/2021 at 21:19 Approved by: Higinio Mai M.D. on 05/30/2021 at 21:24
[2021-05-30 21:00] VITALS: PULSE 75; RESP 22; O2SAT 96
[2021-05-30 21:11] VITALS: BP 112/71; PULSE 71; RESP 17; O2SAT 96
--- NOTE | 2021-05-30 21:12 | PC.NURSE ---
Patient discharged late tuesday night after evaluation for TIA. Patient reports one episode of dizziness and near syncope yesterday. Today normal BP 116/69 this morning throughout day dizzy spells and elevated BP. Patient took clonidine around 1600 and again just prior to arrival. Denies slurred speech, facial droop at time of dizziness. Patient state when feeling near syncopal c/o left facial tingling now resolved
[2021-05-30 21:30] VITALS: BP 100/65; PULSE 65; RESP 18; O2SAT 96
[2021-05-30 21:56] VITALS: BP 104/67; PULSE 69; RESP 21; O2SAT 95
== END 2021-05-30 21:59 | disposition home or self-care (01) ==
PROVIDERS: Emergency Provider Emergency Medicine; PCP Internal Medicine
DX: R20.2 Paresthesia of skin (principal); R42 Dizziness and giddiness
CPT/HCPCS: 70450; 99283; 99284

== ENCOUNTER → 2021-06-08 13:31 | Outpatient (CLI) | payer OTHER, SELFPAY ==
[2021-05-25 15:45] VITALS: BMI 28.5
--- NOTE | 2021-06-08 | DI.CT.S_ITS ---
PROCEDURE: CT ABDOMEN PELVIS WO/W CON INDICATIONS: Urinary tract infection, site not specified TECHNIQUE: Optional 5 mm thick noncontrast images acquired from the diaphragm to the symphysis pubis. After the administration of intravenous contrast, 5 mm thick images acquired from the diaphragm to the symphysis pubis after a 10-minute delay. 2 mm thick coronal and sagittal reformats were then performed of the kidneys and ureters. For radiation dose reduction, the following was used: automated exposure control, adjustment of mA and/or kV according to patient size. COMPARISON: None. FINDINGS: Image quality: Excellent. Lung bases: Lung bases are clear. Heart size is normal. Urinary system: Both kidneys are normal in size, without hydronephrosis or nephrolithiasis on pre-contrast images. No perinephric fat stranding. There is normal bilateral renal enhancement. Renal calyces appear normal in morphology when filled with contrast. Opacified portions of both ureters demonstrate normal caliber. There is a 3 mm stone in the mid right ureter at the level of L4 vertebral body. No other ureteral calcifications are identified. Bladder wall thickness is normal. No calcified bladder stones. Other solid organs: The liver is normal size. There are few thin-walled hypodensities in the left hepatic lobe, likely simple cysts. The gallbladder is partially decompressed and the wall is diffusely hyperemic. No pericholecystic inflammation. Biliary system is nondilated. The pancreas is normal. Spleen is normal size. No adrenal nodules. Peritoneum and bowel: Diverticulosis of the sigmoid. Bowel loops otherwise demonstrate normal wall thickness and caliber. No free fluid or air. Nodes and vessels: No retroperitoneal or mesenteric adenopathy by size criteria. Aorta and inferior vena cava are normal in size. Retro aortic left renal vein. Abdominal wall: No ventral hernias. Pelvis: No pathologic free pelvic fluid. No inguinal hernias or adenopathy. The uterus is absent. Ovaries are not identified. Bones: No suspicious bony lesions. No vertebral body compression fractures. IMPRESSION: 1. 3 mm right mid ureteral stone. No significant obstruction. 2. CT morphology of the urinary tract is otherwise normal. 3. Sigmoid diverticulosis. Dictated by: Neda Flores M.D. on 06/08/2021 at 15:26 Approved by: Neda Flores M.D. on 06/08/2021 at 15:39
== END ==
PROVIDERS: PCP Internal Medicine; Referring Provider Internal Medicine; Visit Provider Internal Medicine
DX: R31.21 Asymptomatic microscopic hematuria (principal); N39.0 Urinary tract infection, site not specified; N20.1 Calculus of ureter; K57.30 Diverticulosis of large intestine without perforation or abscess without bleeding
CPT/HCPCS: 74178

== ENCOUNTER → 2022-09-29 11:29 | Outpatient (CLI) | payer OTHER, SELFPAY ==
[2021-05-25 15:45] VITALS: BMI 28.5
--- NOTE | 2022-09-29 | DI.CT.S_ITS ---
PROCEDURE: CT IVP A/P W/WO INDICATIONS: Hematuria, unspecified TECHNIQUE: Optional 5 mm thick noncontrast images acquired from the diaphragm to the symphysis pubis. After the administration of intravenous contrast, 5 mm thick images acquired from the diaphragm to the symphysis pubis after a 10-minute delay. 2 mm thick coronal and sagittal reformats were then performed of the kidneys and ureters. For radiation dose reduction, the following was used: automated exposure control, adjustment of mA and/or kV according to patient size. COMPARISON: None. FINDINGS: Image quality: Excellent. Lung bases: Lung bases are clear. Heart size is normal. Urinary system: Both kidneys are normal in size, without hydronephrosis or nephrolithiasis on pre-contrast images. No perinephric fat stranding. There is normal bilateral renal enhancement. Renal calyces appear normal in morphology when filled with contrast. Opacified portions of both ureters demonstrate normal caliber. Bladder wall thickness is normal. No calcified bladder stones. Other solid organs: Liver is normal in size and enhancement. Fluid attenuating cyst of the gallbladder fossa and additional subcentimeter hypoattenuating lesion in segment 5, too small to characterize by CT. Gallbladder has a heterogeneous wall but no radiopaque stones. No distention or pericholecystic edema . Biliary system is non dilated. Pancreas enhances normally. Spleen is normal in size and enhancement. No adrenal nodules. Peritoneum and bowel: Bowel loops demonstrate normal wall thickness and caliber. No free fluid or air. Nodes and vessels: No retroperitoneal or mesenteric adenopathy by size criteria. Aorta and inferior vena cava are normal in size. Abdominal wall: No ventral hernias. Pelvis: No pathologic free pelvic fluid. No inguinal hernias or adenopathy. Bones: No suspicious bony lesions. No vertebral body compression fractures. IMPRESSION: No nephrolithiasis or filling defects within the opacified renal collecting system. Dictated by: Perez Corrigan M.D. on 09/29/2022 at 13:48 Approved by: Perez Corrigan M.D. on 09/29/2022 at 13:51
== END ==
PROVIDERS: PCP Internal Medicine; Referring Provider Internal Medicine; Visit Provider Internal Medicine
DX: R31.9 Hematuria, unspecified (principal)
CPT/HCPCS: 74178; Q9967